=== PATIENT | male | born 1960 | race Caucasian/White ===

== ENCOUNTER 2024-11-19 09:10 | Observation (INO) ==
[2024-11-19] MEDS: PROTONIX INJ 40 MG VIAL IVP SCH (09:51)
[2024-11-19] MEDS: D5 1/2 NS 1,000 ML 1,000 ML IV SCH (09:58)
[2024-11-19 10:02] LABS: MEAN PLATELET VOLUME 8.4 fL (7.4-11.0); RED CELL DISTRIBUTION WIDTH 14.8 % (11.6-16.5)
[2024-11-19 10:04] LABS: INR 1.07 (0.8-1.3)
[2024-11-19 10:15] LABS: COR CA(FOR HYPOALB) 9.1 mg/dL (8.5-10.1); COR NA(FOR HYPERGLY) 138 mmol/L (136-145); CREATININE 1.11 mg/dL (0.70-1.30); eGFR NON BLACK RACES > 60 (>60)
[2024-11-19 10:26] VITALS: BMI 41.1
[2024-11-19] MEDS ORDERED: NS 250 ML IV 250 ML IV ONE ×2 (10:32→15:15)
[2024-11-19] MEDS: CARAFATE PO SCH (10:49)
[2024-11-19] MEDS ORDERED: NovoLIN R (or HumuLIN R) SUBCUT PRN (16:33)
[2024-11-19] MEDS: SNACK - Diabetic Appropriate PO SCH (19:46)
[2024-11-20] MEDS: HIBICLENS WASH EXT ONE (04:03)
[2024-11-20 05:28] LABS: MEAN PLATELET VOLUME 8.2 fL (7.4-11.0); RED CELL DISTRIBUTION WIDTH 15.4 % (11.6-16.5)
[2024-11-20 05:38] LABS: COR CA(FOR HYPOALB) 8.8 mg/dL (8.5-10.1); COR NA(FOR HYPERGLY) 140 mmol/L (136-145); CREATININE 0.85 mg/dL (0.70-1.30); eGFR NON BLACK RACES > 60 (>60)
[2024-11-20] MEDS ORDERED: CONSULT PHARMACY - POTASSIUM & MAGNESIUM XX SCH (07:00)
[2024-11-20] MEDS: K-RIDER 10 MEQ/100 ML WATER 10 MEQ/100 ML BAG IV SCH (07:31)
[2024-11-20] MEDS: NS 500 ML IV 500 ML IV ONE (08:27)
[2024-11-20] MEDS: DIPRIVAN VIAL 20 ML ONE (09:08)
[2024-11-20] MEDS: MAGNESIUM SULFATE 1 GRAM/100 mL PREMIX 1 G/100 ML BAG IV SCH (10:00)
[2024-11-20] MEDS: RESTORIL CAP 15 MG PO PRN (20:26)
[2024-11-21 05:44] LABS: MEAN PLATELET VOLUME 8.5 fL (7.4-11.0); RED CELL DISTRIBUTION WIDTH 15.4 % (11.6-16.5)
[2024-11-21 05:56] LABS: COR CA(FOR HYPOALB) 9.0 mg/dL (8.5-10.1); CREATININE 0.79 mg/dL (0.70-1.30); eGFR NON BLACK RACES > 60 (>60)
[2024-11-21 08:26] VITALS: BP 158/80; PULSE 73; RESP 19; TEMP 98.2; O2SAT 96
== END 2024-11-21 08:25 | disposition home or self-care (01) ==
LOC: MED/SURG
PROVIDERS: ADMIT Surgery; ATTEND Surgery
DX: R42 Dizziness and giddiness; I10 Essential (primary) hypertension; I25.10 Atherosclerotic heart disease of native coronary artery without angina pectoris; D64.89 Other specified anemias; K92.1 Melena; K26.3 Acute duodenal ulcer without hemorrhage or perforation; R10.84 Generalized abdominal pain; K29.00 Acute gastritis without bleeding; K21.9 Gastro-esophageal reflux disease without esophagitis; E11.65 Type 2 diabetes mellitus with hyperglycemia; E83.51 Hypocalcemia